=== PATIENT | female | born 1950 | race Caucasian/White ===

== ENCOUNTER → 2018-09-16 14:59 | Outpatient (CLI) | payer MEDICARE, OTHER, SELFPAY ==
--- NOTE | 2018-09-16 | DI.ECHO.S_ITS ---
[place] [facility]---------+ [facility] +---------+ : : [address] : [address] : : : : [id number] : : : : Phone: [phone]+ Echocardiogram Report + + :Name: MICAELA GUSMAN Study Date: 09/16/2018 Height: 63 in : :[facility] Exam Location: [facility] Weight: 139 lb : : Gender: Female BSA: 1.7 m2 : :: 1950 Age: 68 yrs BP: 142/78 mmHg: :Reason For Study: Aortic Insufficiency : :Ordering Physician: Lauren Styles : :Vanesa Performed By: Erika Real : :Referring: LAUREN ALEXIS : + + Interpretation Summary Apical images are difficult secondary to breast implants. 1) Normal left ventricular thickness, size, wall motion, and systolic function (EF 60-65%). 2) Normal right ventricular size and function. 3) Mild to moderate aortic regurgitation. 4) Compared to the Echo done 06/13/2016, no significant change. Procedure: A two-dimensional transthoracic echocardiogram with color flow and Doppler was performed. The study quality was technically adequate. Comparison is made with the echocardiogram of 06/13/2016. Apical images were difficult to obtain secondary to breast implants. The patient was in normal sinus rhythm during the exam. Left Ventricle: The left ventricle is normal in size. There is normal left ventricular wall thickness. The ejection fraction is estimated to be 60-65%. Left ventricular systolic function is normal without focal wall motion abnormalities. Right Ventricle: The right ventricle is normal in size and function. Atria: Both atria are normal in size. The interatrial septum is intact with no evidence for an atrial septal defect. Mitral Valve: The mitral valve leaflets appear mildly thickened, but open well. There is trace mitral regurgitation. Aortic Valve: The aortic valve is trileaflet. The aortic valve opens well. There is mild aortic valve sclerosis. There is no aortic valve stenosis. There is mild to moderate aortic regurgitation. Tricuspid Valve: The tricuspid valve is normal in structure and function. There is a trace or physiologic amount of tricuspid regurgitation. Pulmonary artery pressures cannot be estimated because of the lack of a measurable TR jet velocity. Pulmonic Valve: The pulmonic valve is not well seen, but is grossly normal. There is mild pulmonic regurgitation. Great Vessels: The ascending aorta is normal in size. The IVC is of normal diameter and collapses greater than 50% with a sniff. This suggests a low right atrial pressure of 3 mm Hg. Pericardium/ Pleura There is no pericardial effusion. There is an anterior echo-free space consistent with a fat pad. There is no pleural effusion. MMode/2D Measurements & Calculations LVIDd: 4.4 cm LVOT diam: 2.1 cm LVIDs: 2.7 cm asc Aorta Diam: 3.4 cm FS: 38.7 % Ao Arch Diam (Prox Trans): 2.4 cm IVSd: 0.79 cm LVPWd: 0.96 cm LV faye. diameter/BSA (cm/m^2): 2.6 LV sys. diameter/BSA (cm/m^2): 1.6 LA A2 area: 19.6 cm2 RA long axis: 3.7 cm LA A4 area: 13.5 cm2 RA area: 10.6 cm2 LA length (vol): 4.5 cm RA vol: 26.0 ml LA vol: 49.9 ml RA : 15.7 ml/m2 LA vol index: 30.1 ml/m2 TAPSE: 2.4 cm Doppler Measurements & Calculations Ao V2 max: 124.9 cm/sec LVOT Max Miki: 96.3 cm/sec Ao V2 mean: 85.9 cm/sec LV V1 max P.7 mmHg Ao max P.2 mmHg LV V1 VTI: 20.6 cm Ao mean P.4 mmHg AUDREY(I,D): 2.7 cm2 Ao V2 VTI: 26.2 cm AUDREY(V,D): 2.7 cm2 sev ratio: 0.79 AUDREY indexed to BSA (cm^2/m^2): 1.6 AI P1/2t: 857.0 msec AI dec slope: 153.6 cm/sec2 MV E max miki: 49.3 cm/sec PA V2 max: 62.1 cm/sec MV A max miki: 63.6 cm/sec PA V2 mean: 41.4 cm/sec MV E/A: 0.78 PA mean P.78 mmHg Med Peak E' Miki: 5.5 cm/sec PA pr(Accel): 4.1 mmHg E/E' med: 9.0 Lat Peak E' Miki: 6.7 cm/sec E/E' lat: 7.3 E/e' average: 8.2 MV dec time: 0.24 sec SV(LVOT): 70.8 ml Reading Physician:04:49 PM
== END ==
PROVIDERS: PCP Obstetrics & Gynecology; Visit Provider Internal Medicine Cardiovascular Disease
DX: I35.1 Nonrheumatic aortic (valve) insufficiency (principal); I37.1 Nonrheumatic pulmonary valve insufficiency
CPT/HCPCS: 93306